=== PATIENT | male | born 1990 | race Caucasian/White ===

== ENCOUNTER 2021-03-11 14:41 | Emergency (ER) | payer SELFPAY ==
[2021-03-11] MEDS ORDERED: Fluorescein 1 MG Ophth Strip EYELF ONE (14:50)
[2021-03-11] MEDS ORDERED: Tetracaine HCl/PF 0.5% 4 ML Bottle EYELF ONE (14:51)
[2021-03-11] MEDS ORDERED: Gentamicin 0.3% Ophth Soln 5 ML Bottle EYELF ONE (14:52)
--- NOTE | 2021-03-11 15:11 | EDM.PDOC ---
Scribed by Linnea Brice 03/11/21 1510 for Bry Calixto MD ED HPI GENERAL MEDICAL PROBLEM - General Chief Complaint: Eye Problems Stated Complaint: GOT SOMETHING IN EYE [facility] Time Seen by Provider: 03/11/21 14:46 Source of Information: Reports: Patient, RN, RN Notes Reviewed History Limitations: Reports: No Limitations - History of Present Illness INITIAL COMMENTS - FREE TEXT/NARRATIVE: Patient presents to ED by POV from [facility] after getting concrete dust or dirt blown into the left eye. Denies any visual changes. Denies any other injury. Tetanus is up to date. Onset: Today Duration: Getting Worse Location: Reports: Other (eye) Quality: Reports: Ache Severity: Moderate Improves with: Reports: None Worsens with: Reports: None Associated Symptoms: Reports: No Other Symptoms - Related Data Allergies Allergy/AdvReac Type Severity Reaction Status Date / Time No Known Allergies Allergy Verified 03/11/21 15:00 Home Meds: Home Meds . [No Known Home Meds] 03/11/21 [History] ED ROS GENERAL - Review of Systems Review Of Systems: Comprehensive ROS is negative, except as noted in HPI. ED EXAM GENERAL W FULL EYE - Physical Exam Exam: See Below Exam Limited By: No Limitations General Appearance: Alert, WD/WN, No Apparent Distress Eye Exam: Right Eye: Normal Inspection, Left Eye: Corneal Abrasion, Bilateral Eye: EOMI, PERRL Eyelids: Right: Lid Everted for Exam, Bilateral: Normal Appearance Conjunctiva & Sclera: Right: Normal Appearance, Left: Injected Cornea Exam: Right: Normal Appearance, Left: Corneal Abrasion, Examined with Flourescein, Other (No foreign body) Extraocular Movements: Bilateral: Intact Pupils: Normal Accommodation Pupillary Size: Bilateral: 3 mm Pupillary Reaction: Bilateral: Brisk Throat/Mouth: Normal Voice, No Airway Compromise Head: Atraumatic, Normocephalic Neck: Normal Inspection Respiratory/Chest: No Respiratory Distress Neurological: Alert, Oriented, CN II-XII Intact, No Motor/Sensory Deficits Psychiatric: Normal Mood Skin Exam: Warm, Dry, Intact, Normal Color ED EYE w/ Add Procedure - Eye Procedure Alcaine Drops Administered: Yes Eye FB Removal: no Removal w/ Cotton Swab, no Removal w/ Needle, no Other Antibiotic Oinment/Drps Admin: Left Eye Progress: No foreign body seen in left eye. Course - Orders/Labs/Meds Orders: Active Orders 24 hr Category Date Time Status Fluorescein [Ful-Nika] Med 03/11/21 14:50 Once 1 mg EYELF ONETIME ONE Gentamicin [Garamycin 0.3% Ophth Soln] Med 03/11/21 14:52 Once 1 ml EYELF ONETIME ONE Tetracaine HCl/PF [Tetracaine 0.5% Steri-Unit Ml] Med 03/11/21 14:51 Once 1 ml EYELF ONETIME ONE Medication Orders Fluorescein Sodium (Fluorescein 1 Mg Ophth Strip) 1 mg EYELF ONETIME ONE Stop: 03/11/21 14:51 Last Admin: 03/11/21 14:58 Dose: 1 mg Documented by: SOHAN Gentamicin Sulfate (Gentamicin 0.3% Ophth Soln 5 Ml Bottle) 1 ml EYELF ONETIME ONE Stop: 03/11/21 14:53 Last Admin: 03/11/21 14:59 Dose: 1 ml Documented by: SOHAN Tetracaine HCl (Tetracaine Hcl/Pf 0.5% 4 Ml Bottle) 1 ml EYELF ONETIME ONE Stop: 03/11/21 14:52 Last Admin: 03/11/21 14:58 Dose: 1 ml Documented by: SOHAN Meds: Medications Generic Name Dose Route Start Last Admin Trade Name Freq PRN Reason Stop Dose Admin Fluorescein Sodium 1 mg 03/11/21 14:50 03/11/21 14:58 Fluorescein 1 Mg Ophth Strip EYELF 03/11/21 14:51 1 mg ONETIME ONE Administration Gentamicin Sulfate 1 ml 03/11/21 14:52 03/11/21 14:59 Gentamicin 0.3% Ophth Soln 5 Ml Bottle EYELF 03/11/21 14:53 1 ml ONETIME ONE Administration Tetracaine HCl 1 ml 03/11/21 14:51 03/11/21 14:58 Tetracaine Hcl/Pf 0.5% 4 Ml Bottle EYELF 03/11/21 14:52 1 ml ONETIME ONE Administration Departure - Departure Time of Disposition: 15:10 Disposition: Home, Self-Care 01 Condition: Good Clinical Impression: Corneal abrasion Qualifiers: Encounter type: initial encounter Laterality: left Qualified Code(s): S05.02XA - Injury of conjunctiva and corneal abrasion without foreign body, left eye, initial encounter - Discharge Information *PRESCRIPTION DRUG MONITORING PROGRAM REVIEWED*: Not Applicable *COPY OF PRESCRIPTION DRUG MONITORING REPORT IN PATIENT FATMATA: Not Applicable Instructions: Corneal Abrasion, [id number] Forms: ED Department Discharge Additional Instructions: Gentamicin ophthalmic solution 1 drop into left eye 4 times a day for 5 days. Tetracaine ophthalmic solution 1 drop left eye every 4 hours as needed for pain for 24 hours only. Wear sunglasses. Use Ibuprofen for pain. [facility] with [facility] for recheck. - My Orders Last 24 Hours: My Active Orders 03/11/21 14:50 Fluorescein [Ful-Nika] 1 mg EYELF ONETIME ONE 03/11/21 14:51 Tetracaine HCl/PF [Tetracaine 0.5% Steri-Unit Ml] 1 ml EYELF ONETIME ONE 03/11/21 14:52 Gentamicin [Garamycin 0.3% Ophth Soln] 1 ml EYELF ONETIME ONE - Assessment/Plan Last 24 Hours: My Active Orders 03/11/21 14:50 Fluorescein [Ful-Nika] 1 mg EYELF ONETIME ONE 03/11/21 14:51 Tetracaine HCl/PF [Tetracaine 0.5% Steri-Unit Ml] 1 ml EYELF ONETIME ONE 03/11/21 14:52 Gentamicin [Garamycin 0.3% Ophth Soln] 1 ml EYELF ONETIME ONE I have read and agree with the documentation that has been completed regarding this visit. By signing this record, I attest that the documentation was completed in my physical presence and is an accurate record of the encounter.
== END 2021-03-11 15:19 | disposition home or self-care (01) ==
LOC: DL.ED 14:41
DX: S05.02XA Injury of conjunctiva and corneal abrasion without foreign body, left eye, initial encounter (principal); W22.8XXA Striking against or struck by other objects, initial encounter
CPT/HCPCS: 99283; A9270-GY